=== PATIENT | female | born 1960 | race Caucasian/White ===

== ENCOUNTER → 2017-03-16 | Outpatient (CLI) | payer OTHER ==
[~2017-03-16] VITALS: Ht 162.6 cm; Wt 68.5 kg
[~2017-03-16] MED LIST: AMOXICILLIN/POTASSIU; CYCLOBENZAPRINE10 MG PO; DICLOFENAC SODI75 M1 PO; FLONASE 0.05%50 MCG NASAL; GLUCOSAMINE &1 EAC1 PO; HYDROCHLOROTH12.5 M1 PO; LISINOPRIL20 MG PO; LORTAB; MELATONIN1 MG; MICROGESTIN FE1 EACH PO; NUCYNTA50 MG PO; OMEPRAZOLE 20 M20 M1 PO; PERCOCET 5-3251 EACH PO; PHENERGAN 25 MG25 M1 PO; PRILOSEC 20 MG20 MG PO; ZOFRAN ODT4 MG PO; ZYRTEC10 M5 PO
--- NOTE | ~2017-03-16 | HPC ---
[facility] [place] [address] PAIN MANAGEMENT CONSULTATION Name: ROGERS NICHOLAS [facility] #: [facility] [id number] Admission: 03/16/17 Attend Phys: Judd Mckeon DO Discharge: Date of : 62 Report #: [id number] THIS REPORT FOR: //name// CC: Curry Mckeon DATE OF SERVICE: 03/16/2017 The patient is a very pleasant 57-year-old female seen in consultation at the request of Dr. Craft for evaluation of cervical radicular symptoms. The patient has had chronic neck pain, but starting in December, developed radicular symptoms with paresthesia and tingling going in her fingers and hands. She has been on diclofenac for her neck pain for greater than a year. She has tried range of motion and stretching with nominal efficacy. She notes symptoms were exacerbated with sleeping, writing or typing or holding the phone. The patient describes symptoms as periodic, burning, aching, rates pain anywhere from a 7-9 on visual analog scale. Again, denies myelopathic symptoms. REVIEW OF SYSTEMS: Complete review of systems attached to chart and gone over with the patient. She is . She does not smoke or drink alcohol to excess. History of hypertension, treated with lisinopril and hydrochlorothiazide. Again, she has been on diclofenac 75 mg b.i.d. for several years for chronic neck pain, takes Flexeril 10 mg at bedtime for same. Surgical history was reviewed, history of sinus surgeries x 2, 2009 and 2011; ACL repair, left knee 2000; and breast augmentation surgery in 1987. The patient is retired. 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 She is on disability income. Pain impact score is 35/70. PHYSICAL EXAMINATION: Shows a 5 feet 4 inches, 148-pounds female, BMI is 25.9 kg/m2, blood pressure is 141/79, pulse 72, respirations are 16. Pupils equal and react to light and accommodation. Extraocular muscles are intact. Cervical range of motion is limited in all planes. Moderately positive Lhermitte's. Upper extremity strength is generally preserved. Hand grasp is good. Tinel's is negative. Biceps, triceps, brachioradialis reflexes are symmetric. Tenderness in the splenius capitis and trapezius. No discrete trigger points are noted. Heart is regular and rhythmical without murmur. Lungs are clear to auscultation. Abdomen is benign. Gait is tandem. Lumbar flexion is good to 90 degrees. DIAGNOSTIC STUDIES: We reviewed diagnostic findings including MRI of the cervical spine from 02/19/2017. The patient has cervical spondylosis [address] [address] PAIN MANAGEMENT CONSULTATION Name: YUROGERS PATEL Room #: REG CLI [facility].#: [id number] Admission: 03/16/17 Attend Phys: Judd Mckeon DO Discharge: Date of : 62 Report #: [id number] throughout, most notably C3-C4, C4-C5, and C5-C6. She does have central spinal stenosis with bilateral neural foraminal narrowing at all of these levels. There is progression of degenerative changes from a prior exam nearly a decade ago, 12/27/2006. ASSESSMENT: Symptomatic cervical radiculopathy by clinical exam and history, component of cervical spondylosis. RECOMMENDATIONS: 1. Continue with current medication including diclofenac 75 mg b.i.d. 2. Cervical epidural injection under fluoroscopy today. 3. Follow up in 3 weeks for reevaluation. Thank you for allowing me to participate in the patent's care. I will keep you abreast of her progress. PROCEDURE: Cervical epidural injection under fluoroscopy. PROCEDURE NOTE: After written and informed consent was obtained including risk of dural puncture, spinal cord trauma, paralysis and increased pain, the patient was taken to the fluoroscopy suite and placed in the prone position, with appropriate abdominal bolstering, neck was flexed, palms under the thighs. Skin was prepped with ChloraPrep. Sterile draping was applied. Skin wheal with 1% Xylocaine was raised. A 22-gauge 3-1/2 inch epidural Tuohy needle was placed via a midline approach at the C7-T1 interspace, advanced under biplanar fluoroscopy using continuous loss of resistance. With appropriate loss of resistance at the expected depth on lateral view, the glass loss of resistance syringe was disconnected. A low volume extension tubing was connected to the needle and a 5 mL syringe. Negative aspiration for cerebrospinal fluid or blood was noted. A 1 mL of Omnipaque was injected which showed spread within the epidural space on biplanar fluoroscopy. This was followed with 80 mg of triamcinolone plus 1 mL of 1.5% preservative Xylocaine. Needle was withdrawn to the interspinous ligament, 0.5 mL of Xylocaine was used to flush the needle. The needle was then completely withdrawn. The area was cleansed. Band-Aid was applied. The patient was allowed to move off the procedure table and ambulated to the recovery room, monitored for an appropriate period of time, discharged in good and stable condition. <ELECTRONICALLY SIGNED> By: Judd Mckeon DO 03/19/17 0731 1208 1751 Judd Mckeon DO /debra
[2017-03-16 10:23] VITALS: BP 141/79
== END | disposition home or self-care (01) ==
LOC: PAIN 03-15 13:19
DX: M50.10 Cervical disc disorder with radiculopathy, unspecified cervical region (principal); Z98.890 Other specified postprocedural states

== ENCOUNTER → 2017-04-06 | Outpatient (CLI) | payer OTHER ==
[~2017-04-06] VITALS: Ht 167.6 cm; Wt 69.4 kg
--- NOTE | ~2017-04-06 | HPC ---
[facility] [place] [address] PAIN MANAGEMENT CONSULTATION Name: ROGERS NICHOLAS Room #: REG CL Roxanne.#: [id number] Admission: 04/06/17 Attend Phys: Judd Mckeon DO Discharge: Date of : 62 Report #: [id number] THIS REPORT FOR: //name// CC: Curry Mckeon PAIN CLINIC NOTE The patient is a 57-year-old female typically treated for cervical radiculopathy, cervical spondylosis, last seen in the pain clinic on 03/16/2017 given cervical epidural injection at that time. She returns to pain clinic today noting no improvement of baseline pain, the patient reports 50% relief with ongoing relief. Initial relief was for 2 weeks, but still has ongoing decrease in daytime pain. Rates her subjective pain score of 5 on a VAS. Primary pain in the neck, shoulder and upper back. PHYSICAL EXAMINATION: Shows flexion, extension, rotation associated with some "crunching" in her neck, right side bending exacerbates the pain C2-C3 and C3-C4 area. Tender over the C2-C3 and C3-C4 area. Ongoing radicular symptoms with modestly positive limits. ASSESSMENT: Symptomatic cervical radiculopathy, clinical exam history, component of cervical spondylosis. RECOMMENDATIONS: 1. Repeat epidural injection under fluoroscopy today. 2. Follow up in 4 weeks for evaluation. May consider cervical facet joint injections (C2-C3 and C3-C4) if indicated at that time. PROCEDURE: Cervical epidural injection under fluoroscopy. PROCEDURE NOTE: After written and informed consent was obtained including risk of dural puncture, spinal cord trauma, paralysis and increased pain, the patient was taken to the fluoroscopy suite and placed in the prone position, with appropriate abdominal bolstering, neck was flexed, palms under the thighs. Skin was prepped with ChloraPrep. Sterile draping was applied. Skin wheal with 1% Xylocaine was raised. A 22-gauge 3-1/2 inch epidural Tuohy needle was placed via a midline approach at the C7-T1 interspace, advanced under biplanar fluoroscopy using continuous loss of resistance. With appropriate loss of resistance at the expected depth on lateral view, the glass loss of resistance syringe was disconnected. A low volume extension tubing was connected to the needle and a 5 mL syringe. Negative aspiration for cerebrospinal fluid or blood was noted. A 1 mL of Omnipaque was injected which showed spread within the epidural space on biplanar fluoroscopy. This was followed with 80 mg of triamcinolone plus 1 mL of 1.5% preservative Xylocaine. Needle was withdrawn to the interspinous ligament, 0.5 mL of Xylocaine was used to flush the needle. [address] [address] PAIN MANAGEMENT CONSULTATION Name: ROGERS NICHOLAS Room #: REG PETRONA Mcdonald#: [id number] Admission: 04/06/17 Attend Phys: Judd Mckeon DO Discharge: Date of : 62 Report #: [id number] The needle was then completely withdrawn. The area was cleansed. Band-Aid was applied. The patient was allowed to move off the procedure table and ambulated to the recovery room, monitored for an appropriate period of time, discharged in good and stable condition. <ELECTRONICALLY SIGNED> By: Judd Mckeon DO 04/09/17 1026 1321 2228 Judd Mckeon DO /nt
[2017-04-06 10:39] VITALS: BP 111/67
== END | disposition home or self-care (01) ==
LOC: PAIN 06:28
DX: M47.892 Other spondylosis, cervical region (principal); G89.29 Other chronic pain; M54.12 Radiculopathy, cervical region; Z88.2 Allergy status to sulfonamides; Z79.899 Other long term (current) drug therapy

== ENCOUNTER → 2017-10-04 | Outpatient (CLI) | payer OTHER | LOC: PAIN 04-27 11:02 → CAT 08:15 | DX: Z13.6 Encounter for screening for cardiovascular disorders (principal); E78.00 Pure hypercholesterolemia, unspecified ==

== ENCOUNTER → 2018-07-19 | Outpatient (CLI) | payer OTHER | LOC: ULTRA 07:48 | DX: D25.9 Leiomyoma of uterus, unspecified (principal); N83.02 Follicular cyst of left ovary; N28.1 Cyst of kidney, acquired; Z88.2 Allergy status to sulfonamides ==

== ENCOUNTER → 2019-02-05 | Outpatient (CLI) | payer OTHER | LOC: CAT 08:51 | DX: Z13.6 Encounter for screening for cardiovascular disorders (principal); E78.00 Pure hypercholesterolemia, unspecified; I25.10 Atherosclerotic heart disease of native coronary artery without angina pectoris ==

== ENCOUNTER → 2019-05-02 | Outpatient (CLI) | payer OTHER | LOC: CAT 14:48 | DX: R07.9 Chest pain, unspecified (principal); M47.815 Spondylosis without myelopathy or radiculopathy, thoracolumbar region; Z98.82 Breast implant status ==

== ENCOUNTER → 2019-05-08 | Outpatient (CLI) | payer OTHER | LOC: ULTRA 14:50 | DX: D25.9 Leiomyoma of uterus, unspecified (principal); N83.202 Unspecified ovarian cyst, left side ==

== ENCOUNTER 2019-07-11 04:26 | Emergency (ER) | payer OTHER ==
[~2019-07-11] VITALS: Ht 162.6 cm; Wt 61.7 kg
[2019-07-11 05:03] LABS: HEMATOCRIT 36.9 % (37.0-47.0); HEMOGLOBIN 12.4 gm/dL (12.0-15.0); MCH 30.2 pg (26.0-34.0); MCHC 33.7 g/dL (28.0-37.0); MCV 89.8 fL (80.0-100.0); PLATELET COUNT 259 thou/uL (150-400); RBC 4.11 mil/uL (4.20-5.00); RDW 12.9 % (10.5-14.5); WBC 4.4 thou/uL (4.0-11.0)
[2019-07-11 05:14] LABS: ANION GAP 7 mmol/L (7-16); BUN 32 mg/dL (7-18); CALCIUM 8.6 mg/dL (8.5-10.1); CHLORIDE 102 mmol/L (98-107); CO2 28 mmol/L (21-32); CREATININE 0.9 mg/dL (0.6-1.0); GLUCOSE 101 mg/dL (74-106); POTASSIUM 3.5 mmol/L (3.5-5.1); SODIUM 137 mmol/L (136-145)
[2019-07-11 05:22] LABS: TROPONIN-I <0.06 ng/mL (<0.06)
[2019-07-11 06:24] VITALS: BP 99/46
[2019-07-11 06:29] LABS: ABSOLUTE NEUTROPHILS 0.9 thou/uL (1.4-8.2)
[2019-07-11 06:30] LABS: PLATELET ESTIMATE NORMAL
--- NOTE | 2019-07-11 08:29 | EKG ---
[facility] [place] [address] ELECTROCARDIOGRAM REPORT Name: ROGERS NICHOLAS Room #: DEP [facility]#: [id number] Admission: 07/11/19 Attend Phys: Discharge: 07/11/19 Date of : 62 Report #: [id number] THIS REPORT FOR: cc: Curry Craft MD, Neal A. MD Lundgren,Casey Nunn MD [facility] ~ THIS REPORT FOR: //name// [facility] ED Test Date: 2019-07-11 Test Time: 04:58:14 Pat Name: ROGERS NICHOLAS Department: Room: Gender: On Call: [place] [id number] : 1960 Requested By: Price Gee Order Number: [id number] MD: Casey Polanco Measurements Intervals [place] Rate: 48 P: 26 PA: 156 QRS: 38 QRSD: 94 T: 42 QT: 452 QTc: 404 Interpretive Statements Sinus bradycardia RSR' in V1 or V2, right VCD Compared to ECG 11/08/2012 18:54:46 No significant change was found Electronically Signed On 07-11-2019 8:27:35 CDT by Casey Polanco [email or web address] <ELECTRONICALLY SIGNED> By: Casey Polanco MD, [facility] 07/11/19 0827 0458 0458 Casey Polanco MD, [facility] /EPI
== END 2019-07-11 06:27 | disposition home or self-care (01) ==
LOC: ER 04:26
PROVIDERS: Emergency Medicine
DX: M54.10 Radiculopathy, site unspecified (principal); M25.511 Pain in right shoulder; R06.02 Shortness of breath; R42 Dizziness and giddiness; R11.0 Nausea; Z79.899 Other long term (current) drug therapy; Z88.2 Allergy status to sulfonamides

== ENCOUNTER → 2019-10-08 | Outpatient (CLI) | payer OTHER | LOC: CAT 09:50 → MRI 09:50 | PROVIDERS: ATTEND Family Medicine | DX: M50.223 Other cervical disc displacement at C6-C7 level (principal); M51.24 Other intervertebral disc displacement, thoracic region; M25.78 Osteophyte, vertebrae; M50.30 Other cervical disc degeneration, unspecified cervical region; M48.02 Spinal stenosis, cervical region; M47.812 Spondylosis without myelopathy or radiculopathy, cervical region; R59.9 Enlarged lymph nodes, unspecified ==

== ENCOUNTER → 2020-06-23 | Outpatient (CLI) | payer OTHER ==
[~2020-06-23] MED LIST changes: +DICLOFENAC SODI75 MG PO
[2020-06-23 11:09] LABS: APTT 24.9 Seconds (24.5-32.8); PROTIME 10.9 Seconds (9.3-11.4)
--- NOTE | 2020-06-23 15:14 | EKG ---
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: Tylor CHRISTIANSON : 1960 Requested By: Arpit Hodge Order Number: [id number] MD: Casey Polanco Measurements Intervals [place] Rate: 65 P: 1 TX: 154 QRS: 39 QRSD: 95 T: 53 QT: 394 QTc: 410 Interpretive Statements Sinus rhythm RSR' in V1 or V2, probably normal variant Probable left ventricular hypertrophy Compared to ECG 07/11/2019 04:58:14 Sinus bradycardia no longer present Electronically Signed On 06-23-2020 15:13:47 CDT by Casey Polanco [email or web address] <ELECTRONICALLY SIGNED> By: Casey Polanco MD, [facility] 06/23/20 1513 1048 1048 Casey Polanco MD, [facility] /EPI
== END ==
LOC: LAB 10:00
PROVIDERS: ATTEND Specialist
DX: Z01.812 Encounter for preprocedural laboratory examination (principal); Z20.822 Contact with and (suspected) exposure to COVID-19; I49.9 Cardiac arrhythmia, unspecified

== ENCOUNTER 2020-06-28 06:05 | Inpatient (IN) | payer OTHER ==
[2020-06-28] VITALS (9 sets, daily range): BP systolic 106–126; BP diastolic 62–76
[~2020-06-28] VITALS: Ht 162.6 cm; Wt 56.7 kg
--- NOTE | 2020-06-28 12:16 | NUR ---
Pt transferred to unit from PACU. A&ox4. Drowsy. Dressing c/d/i. Admission completed. Hospitalist consulted. VSS. Resting comfortably at the moment. Call light within reach. Fall precautions in place. Will continue to monitor.
--- NOTE | 2020-06-28 15:42 | NUR ---
ASSESSMENT: CM REVIEWED CHART. PT IS ALERT AND ORIENTED X4. PT IS S/P C3/C4 DISC HERNIATION WITH SPINAL DECOMPRESSION. PT REPORTS LIVING IN A SPLIT LEVEL HOME WITH HER AND DAUGHTER. PT REPORTS ABOUT 6 STEPS WITH HANDRAILS TO ENTER AND ANOTHER 6 STEPS WITH HANDRAILS TO THE BEDROOM. PT REPORTS BEING INDEPENDENT WITH ADLS AND AMBULATION. PT REPORTS SHE HAS NOT HAD HH IN THE PAST OR BEEN TO A POST ACUTE CARE STAY. PT REPORTS HAVING A GRAB BAR IN THE SHOWER. PT REPORTS SHE IS NORMALLY INDEPENDENT WITH ALL NEEDS. CM DISCUSSED ROLE AND WILL CONTINUE TO FOLLOW TO ASSIST NEEDED. PT EVAL IS ORDERED AND PENDING A THIS TIME.
--- NOTE | 2020-06-28 20:54 | NUR ---
ASSESSMENT COMPLETED. UPON SHIFT CHANGE, PT WAS VOMITING, THEN ABOUT 30 MINS LATER PT AGAIN C/O EMESIS. ZOFRAN ORDERED.PT ADVISED TO STICK WITH CLEARS FOR NOW AND TAKE IT EASY ON HER INTAKE.2ND EMESIS CONSISTS OF CLEAR LIQUID, THE FIRST WAS YELLOW WITH FOOD PARTICLES. IVF INFUSING.AFEBRILE. DRSG C/D/I TO R SIDE OF NECK. SHE IS ON ROOM AIR WITH NO RESP DISTRESS.AT THIS TIME, SHE DENIES PAIN. CALLS WITH NEEDS, CALL LIGHT AND NEEDED ITEMS WITHIN REACH.
[2020-06-29 03:52] VITALS: BP 134/74
[2020-06-29 05:13] LABS: ABSOLUTE NEUTROPHILS 4.8 thou/uL (1.4-8.2); BASOPHILS 0.2 % (0.0-2.0); EOSINOPHILS 0.3 % (0.0-3.0); HEMATOCRIT 35.9 % (37.0-47.0); HEMOGLOBIN 12.1 gm/dL (12.0-15.0); LYMPHOCYTES 18.1 % (24.0-44.0); MCH 30.6 pg (26.0-34.0); MCHC 33.7 g/dL (28.0-37.0); MCV 90.9 fL (80.0-100.0); MONOCYTES 12.2 % (1.0-8.0); PLATELET COUNT 237 thou/uL (150-400); POLYS 69.2 % (36.0-66.0); RBC 3.95 mil/uL (4.20-5.00); RDW 12.5 % (10.5-14.5)
[2020-06-29 05:28] LABS: CALCIUM 8.4 mg/dL (8.5-10.1); CREATININE 0.7 mg/dL (0.6-1.0); MAGNESIUM 1.8 mg/dL (1.8-2.4); POTASSIUM 3.6 mmol/L (3.5-5.1)
[2020-06-29 07:00] VITALS: BP 120/68
--- NOTE | 2020-06-29 09:46 | NUR ---
ORDERS FOR EVAL AND TREAT. SPOKE TO Pt WHO STATES SHE HAS ALREADY BEEN UP WITH NURSING AND HAS WALKED TO THE BATHROOM WITHOUT DIFFICULTY. Pt STATES SHE IS HAVING NO PROBLEM WITH MOBILITY AND HOPING TO GO HOME TODAY. PAIN IN ARMS IS GONE. Pt IS DECLINING A FORMAL P.T. EVAL BUT APPEARS SAFE FOR HOME TODAY
--- NOTE | 2020-06-29 10:11 | NUR ---
Assumed care of pt at 0700. Pt a&o4. Ambulates with steady gait. Pain controlled with prn pain meds. Denies nausea. Dressing c/d/i. IVF infusing. Possible discharge to home later today. Call light within reach.
[2020-06-29 12:30] VITALS: BP 120/68
--- NOTE | 2020-06-29 13:01 | NUR ---
ON-GOING ASSESSMENT: PT HAS ORDERS TO DISCHARGE HOME TODAY WHEN CLEARED BY PT. PT DECLINED HER PT EVAL STATING SHE HAS BEEN UP JUST FINE. PT LIVES WITH HER AND DAUGHTER AND DECLINES HAVING ANY NEEDS. CASE CLOSED.
== END 2020-06-29 13:53 | disposition home or self-care (01) | DRG 472 ==
LOC: OR 06:05 → TBA 06:07 → OR 10:20 → 4S 11:28 → OR 11:29 → 4S 06-29 13:53
PROVIDERS: Nurse Practitioner; ADMIT Specialist; ATTEND Specialist
PROC: 0RB30ZZ Excision of Cervical Vertebral Disc, Open Approach (ICD-10-PCS; principal; 2020-06-28)
PROC: 0RG10A0 Fusion of Cervical Vertebral Joint with Interbody Fusion Device, Anterior Approach, Anterior Column, Open Approach (ICD-10-PCS; principal; 2020-06-28)
DX: M50.21 Other cervical disc displacement, high cervical region (principal); G95.20 Unspecified cord compression; I10 Essential (primary) hypertension; Z88.2 Allergy status to sulfonamides; Z87.891 Personal history of nicotine dependence; Z79.899 Other long term (current) drug therapy
CPT/HCPCS: 10102; 50010; 50101; 50402; 51751; 54118; 56526; 56529; 57103; 58456; 58740; 58741; 62110; 62900; 70005